=== PATIENT | female | born 2000 | race Caucasian/White ===

== ENCOUNTER 2019-02-22 09:38 | Emergency (ER) | payer BC ==
[2019-02-22 10:18] VITALS: BP 111/68
--- NOTE | 2019-02-22 10:43 | UC ---
Skin Complaint HPI - HPI Summary HPI Summary: 18 yo WF pw/ sore inflamed lip after a night of drinking and dehydration, lips were dry but does not remember licking it - History of Current Complaint Chief Complaint: UCSkin Time Seen by Provider: 02/22/19 10:12 Stated Complaint: ORAL COMPLAINT Hx Obtained From: Patient Hx From Patient Unobtainable Due To: Other Hx Last Menstrual Period: 02/16/19 Onset/Duration: Sudden Onset Skin Exposure Onset/Duration: Days Ago Onset Severity: Moderate Current Severity: Moderate Pain Intensity: 0 - Allergy/Home Medications Allergies/Adverse Reactions: Allergies Allergy/AdvReac Type Severity Reaction Status Date / Time No Known Allergies Allergy Verified 02/22/19 10:08 Home Medications: Home Medications Ibuprofen TAB* [Motrin TAB* 400 MG] 400 mg PO ONCE PRN 02/22/19 [History Confirmed 02/22/19] Multivitamin [Once Daily] 1 each PO DAILY 02/22/19 [History Confirmed 02/22/19] PMH/Surg Hx/FS Hx/Imm Hx Previously Healthy: Yes - Surgical History Surgical History: None - Family History Known Family History: Positive: Non-Contributory - Social History Alcohol Use: Weekly Alcohol Amount: 10 Substance Use Type: None Smoking Status (MU): Never Smoked Tobacco Review of Systems All Other Systems Reviewed And Are Negative: Yes Physical Exam - Summary Physical Exam Summary: Appearance: Positive: No Pain Distress Skin: Positive: Warm Head/Face: Positive: Normal Head/Face Inspection Eyes: Positive: Normal ENT: Positive: upper lip- wet dry border is erythematous, mildly inflamed with some residual wet excess mucosal skin, no pus Neck: Positive: Supple Respiratory/Lung Sounds: Positive: Clear to Auscultation. Negative: Rales, Rhonchi, Wheezes Cardiovascular: Positive: Normal, RRR, S1, S2 Abdomen : soft, NT/ND Musculoskeletal: Positive: Normal, Strength/ROM Intact Neurological: Positive: CN Intact II-XII Triage Information Reviewed: Yes Vital Signs: Initial Vital Signs Temp 36.6 C 02/22/19 10:11 Pulse 69 02/22/19 10:11 Resp 18 02/22/19 10:11 BP 111/68 02/22/19 10:11 Pulse Ox 98 02/22/19 10:11 Course/Dx - Course Course Of Treatment: lip inflammation due to brief dehydration after drinking ETOH, advised continuous PO hydration and lip care for chapped lips - Diagnoses Provider Diagnosis: Mucosal irritation of oral cavity Discharge ED - Sign-Out/Discharge Documenting (check all that apply): Patient Departure All imaging exams completed and their final reports reviewed: No Studies - Discharge Plan Condition: Stable Disposition: HOME Patient Education Materials: Dehydration (ED) - Billing Disposition and Condition Condition: STABLE Disposition: Home
== END 2019-02-22 10:54 | disposition home or self-care (01) ==
LOC: UCCORT 09:38
DX: K13.79 Other lesions of oral mucosa (principal); E86.0 Dehydration; K13.0 Diseases of lips
CPT/HCPCS: 99201; G0463